=== PATIENT | male | born 1975 | race Caucasian/White ===

== ENCOUNTER 2021-07-21 16:18 | Emergency (ER) | payer BC ==
[2021-07-21 17:19] LABS: CORONAVIRUS COVID-19 NAA POSITIVE (NEGATIVE); INFLUENZA A NAA NEGATIVE (NEGATIVE); INFLUENZA B NAA NEGATIVE (NEGATIVE)
[2021-07-21 18:09] VITALS: PULSE 95
--- NOTE | 2021-07-21 19:02 | EDM.PDOC ---
ED HPI GENERAL MEDICAL PROBLEM - General Chief Complaint: Respiratory Problem Stated Complaint: COUGH, COVID SYMPTOMS Time Seen by Provider: 07/21/21 18:08 - History of Present Illness INITIAL COMMENTS - FREE TEXT/NARRATIVE: CHIEF COMPLAINT(S): Cough HISTORY OF PRESENT ILLNESS: This is a 45-year-old man without any significant past medical history who comes to the emergency department with a chief complaint of a cough. The patient states that for approximately 1-1/2 weeks now he has been experiencing body aches, cough which is nonproductive and just does not feel well. He denies any chest pain, runny nose, congestion, sore throat. He states that he has not tried anything for the body aches. States that he is not vaccinated. He came to the emergency department because he just is not feeling better. REVIEW OF SYSTEMS: Constitutional: Denies fever, chills. Eyes: Denies eye pain Ears, Nose, Mouth, & Throat: Denies earache Cardiovascular: Denies chest pain Respiratory: Positive for nonproductive cough denies shortness of breath Gastrointestinal: Denies Nausea, vomiting, diarrhea, hematochezia. Genitourinary: Denies hematuria Skin:Denies a rash MSK: Positive for body aches Neurological: Denies blurred vision Psychiatric: Denies depression PAST MEDICAL HISTORY: As per history of present illness and as reviewed below otherwise noncontributory. SURGICAL HISTORY: As per history of present illness and as reviewed below otherwise noncontributory. SOCIAL HISTORY: As per history of present illness and as reviewed below otherwise noncontributory. FAMILY HISTORY: As per history of present illness and as reviewed below otherwise noncontributory. EXAMINATION OF ORGAN SYSTEMS/BODY AREAS: Constitutional: Blood pressure is 126/76, heart rate 93, respiratory rate 18 with an oxygen saturation 95% on room air. Temperature 36.9 General: Young man who does not appear to be in acute distress Psychiatric: Appropriate mood and affect. Eyes: No scleral icterus or conjunctival erythema ENMT: Moist mucous membranes. No pharyngeal erythema Cardiovascular: Regular, rate, and rhythm. No gallops, murmurs, or rubs. Bilateral upper extremity pulses symmetric and intact. No peripheral edema. No JVD. Respiratory: Lungs clear to auscultation bilaterally. No wheezes, rales, or rhonchi. Gastrointestinal: Soft, non-tender, non-distended. Normoactive bowel sounds Genitourinary: No suprapubic tenderness Musculoskeletal: Normal range of motion. Skin: No lesions or abrasions. Neurological: Alert, GCS 15 MEDICAL DECISION MAKING AND COURSE IN THE ED WITH INTERPRETATION/REVIEW OF DIAGNOSTIC STUDIES: This is a 45-year-old man without any significant past medical history who comes to the emergency department with nonproductive cough and body aches suggesting viral syndrome at this time I do believe this is likely secondary to Covid versus influenza. Obtain a Covid, influenza swab. Patient's vitals are completely normal. I do not believe any therapeutics are currently indicated. The patient was amenable to this plan. Laboratory: Covid is positive. Influenza is negative. At this point I did discussed that his vitals are completely normal. I did discuss with him strict return precautions. He is to continue with isolation until symptoms improve. He was amenable discharge at this time and had no further questions. Patient is not a monoclonal antibody his duration of his symptoms. DISPOSITION: The patient was discharged home in stable condition. The patient will follow up with primary care physician after his isolation CONDITION: Fair PROCEDURES: None FINAL IMPRESSION(S)/DIAGNOSES: 1. Acute COVID-19 infection Benjamín Suarez M.D. - Related Data Allergies Allergy/AdvReac Type Severity Reaction Status Date / Time No Known Allergies Allergy Verified 07/21/21 16:24 Home Meds: Home Meds Escitalopram [Lexapro] 20 mg PO DAILY 07/21/21 [History] Past Medical History - Past Health History Medical/Surgical History: Denies Medical/Surgical History Psychiatric History: Reports: Depression Social & Family History - Family History Family Medical History: No Pertinent Family History - Tobacco Use Tobacco Use Status *Q: Never Tobacco User - Recreational Drug Use Recreational Drug Use: No ED ROS GENERAL - Review of Systems Review Of Systems: See Below ED EXAM, GENERAL - Physical Exam Exam: See Below Course - Vital Signs Last Recorded V/S: Last Vital Signs Temp 36.9 C 07/21/21 16:22 Pulse 95 07/21/21 19:04 Resp 18 07/21/21 19:04 BP 123/75 07/21/21 19:04 Pulse Ox 96 07/21/21 19:04 - Orders/Labs/Meds Labs: Laboratory Tests 07/21/21 Range/Units 16:24 Influenza Type A RNA NEGATIVE (NEGATIVE) Influenza Type B RNA NEGATIVE (NEGATIVE) SARS-CoV-2 RNA (TROY) POSITIVE H (NEGATIVE) Departure - Departure Time of Disposition: 19:02 Disposition: Home, Self-Care 01 Condition: Fair Clinical Impression: COVID-19 - Discharge Information Instructions: How to Protect Yourself and Others - [facility] (03/14/2021), 10 Things You Can Do to Manage Your COVID-19 Symptoms at Home - [facility] (02/14/2021), Symptoms of COVID-19 - [facility] (09/23/2020), COVID-19: Quarantine vs. Isolation - [facility] (07/18/2020) Referrals: PCP,None [Primary Care Provider] - Forms: ED Department Discharge Additional Instructions: You should take acetaminophen 500-1000 mg every 6 hours as needed for fever and muscle aches. Please drink plenty of fluids and get plenty of rest over the next several days. We would recommend that you get a pulse oximeter from the pharmacy to keep an eye on your oxygen level. If your oxygen level drops below 91%, you should return to the ED for evaluation. You should return to the ER sooner if you start having any symptoms of shortness of breath or any other new or concerning symptoms. 1. Your COVID-19 screening is positive. That means you do have the coronavirus and you are considered contagious. Your vital signs and oxygen saturation are well enough that you were able to monitor your symptoms at home. Continue to monitor for trouble breathing, new confusion or inability to arouse, bluish lips or face or any of the other symptoms we discussed -if this occurs please return to the emergency room. 2. Please self quarantine over the next 10 days. Inform any persons that you have been in contact with since you started becoming symptomatic that you have tested positive; they should be made aware and take the appropriate steps as needed. 3. May alternate Tylenol and ibuprofen as needed for pain and fever management. 4. The [facility] department will be calling you and following up with you. The [place] COVID 19 Hotline phone number , They are open Wednesday - Wednesday 7am - 7pm. Follow up with your primary care provider for re-evaluation and re-testing after the 10 day quarantine and discuss when you should be seen. [facility] [address] [place] [address] [facility] [address] [place] [id number] The patient is informed of any results of their evaluation and diagnostic workup and all questions are answered. They are given discharge instructions and return precautions. The patient is stable for discharge. The patient states they understand and agree with the plan and that they will return if their symptoms get worse or if they have any new concerns. The following information is given to patients seen in the emergency department who are being discharged to home. This information is to outline your options for follow-up care. We provide all patients seen in our emergency department with a follow-up referral. The need for follow-up, as well as the timing and circumstances, are variable depending upon the specifics of your emergency department visit. If you don't have a primary care physician on staff, we will provide you with a referral. We always advise you to contact your personal physician following an emergency department visit to inform them of the circumstance of the visit and for follow-up with them and/or the need for any referrals to a consulting specialist. The emergency department will also refer you to a specialist when appropriate. This referral assures that you have the opportunity for follow-up care with a specialist. All of these measure are taken in an effort to provide you with optimal care, which includes your follow-up. Under all circumstances we always encourage you to contact your private physician who remains a resource for coordinating your care. When calling for follow-up care, please make the office aware that this follow-up is from your recent emergency room visit. If for any reason you are refused follow-up, please contact the [facility] Emergency Department at and asked to speak to the emergency department charge nurse. Sepsis Event Note (ED) - Evaluation Sepsis Screening Result: No Definite Risk
[2021-07-21 19:13] VITALS: BP 123/75
== END 2021-07-21 19:04 | disposition home or self-care (01) ==
LOC: MW.ED 16:18
DX: U07.1 COVID-19 (principal)
CPT/HCPCS: 0240U; 99283

== ENCOUNTER 2021-07-25 08:58 | Emergency (ER) | payer BC ==
[2021-07-25] MEDS ORDERED: Acetaminophen 500 MG Tab PO ONE (08:59)
[2021-07-25] MEDS ORDERED: Dexamethasone 10 MG/ML SDV IVPUSH ONE (08:59)
[2021-07-25] MEDS ORDERED: Ketorolac 30 MG/ML SDV IVPUSH ONE (09:01)
--- NOTE | 2021-07-25 09:04 | EDM.PDOC ---
ED HPI GENERAL MEDICAL PROBLEM - General Stated Complaint: COVID Time Seen by Provider: 07/25/21 08:58 Source of Information: Reports: Patient, EMS History Limitations: Reports: No Limitations - History of Present Illness INITIAL COMMENTS - FREE TEXT/NARRATIVE: 45-year-old male past medical history depression, obesity presents for worsening COVID-19 symptoms. Patient was diagnosed with COVID-19 4 days ago. He notes symptoms times approximately 1 week. He notes shortness of breath, cough, body aches, fevers. He has not been vaccinated against Covid. He has not been on any medications for Covid. Back Pain Score (Numeric/FACES): 7 - Related Data Allergies Allergy/AdvReac Type Severity Reaction Status Date / Time No Known Allergies Allergy Verified 07/25/21 09:14 Past Medical History - Past Health History Medical/Surgical History: Denies Medical/Surgical History Psychiatric History: Reports: Depression Social & Family History - Family History Family Medical History: No Pertinent Family History ED ROS GENERAL - Review of Systems Review Of Systems: Comprehensive ROS is negative, except as noted in HPI. ED EXAM, GENERAL - Physical Exam Exam: See Below Exam Limited By: No Limitations General Appearance: Alert, WD/WN, Anxious, Mild Distress Ears: Hearing Grossly Normal Throat/Mouth: Normal Voice, No Airway Compromise Head: Atraumatic, Normocephalic Respiratory/Chest: Lungs Clear, Normal Breath Sounds, Respiratory Distress Cardiovascular: Normal Peripheral Pulses, No Edema, Tachycardia Extremities: Normal Inspection Neurological: Alert, Normal Cognition Psychiatric: Normal Affect, Normal Mood Skin Exam: Warm, Dry, Intact, Normal Color ED GENERAL MEDICAL PROCEDURES - Endotracheal Intubation Time of Intubation: 16:18 ET Intubation Indication: Respiratory Failure, Airway Protection Preparation: Suction, Balloon Tested, BVM Set Up, Difficult Airway Equip Airway Assessment: Profuse Secretions, Obese, Large Tongue Pre-Oxygenation: Assisted with BVM Anesthesia Meds: Etomidate, Propofol, Rocuronium Placement: Orotracheal, Cuffed (e) Cords Visualized: Yes ETT Size In mm: 7.5 Number of Attempts: 2 Confirmed By: CO2 Indicator, Bilateral Breath Sounds Tube Secured By: By RT #1 Interpretation EKG Date: 07/25/21 Time: 09:00 Rhythm: NSR Rate (Beats/Min): 111 [place]: Normal P-Wave: Present QRS: Normal ST-T: Normal QT: Normal [place]/PQ Interval: 154 Comparison: NA - No Prior EKG EKG Interpretation Comments: EKG shows sinus tachycardia of 111, difficult to read EKG secondary to motion artifact Course - Vital Signs Last Recorded V/S: Last Vital Signs Temp 97.8 F 07/25/21 15:15 Pulse 112 H 07/25/21 16:35 Resp 40 H 07/25/21 16:35 BP 137/86 07/25/21 16:35 Pulse Ox 84 L 07/25/21 16:35 - Orders/Labs/Meds Orders: Medication Orders Propofol (Diprivan 100 Ml) 100 mls @ 3.606 mls/hr IV TITRATE KEILY; Protocol Last Admin: 07/25/21 16:15 Dose: 5 mcg/kg/min, 3.606 mls/hr Documented by: SHANE Labs: Laboratory Tests 07/25/21 07/25/21 07/25/21 Range/Units 09:00 09:00 09:00 WBC 2.02 L (4.0-11.0) K/uL RBC 5.39 (4.50-5.90) M/uL Hgb 16.1 (13.0-17.0) g/dL Hct 46.2 (38.0-50.0) % MCV 85.7 (80.0-98.0) fL MCH 29.9 (27.0-32.0) pg MCHC 34.8 (31.0-37.0) g/dL RDW Std Deviation 41.3 (28.0-62.0) fl RDW Coeff of Liz 13 (11.0-15.0) % Plt Count 223 (150-400) K/uL MPV 10.60 (7.40-12.00) fL Add Manual Diff YES Neutrophils % (Manual) 21 L (48.0-80.0) % Band Neutrophils % 56 % Lymphocytes % (Manual) 14 L (16.0-40.0) % Monocytes % (Manual) 2 (0.0-15.0) % Metamyelocytes % 6 % Myelocytes % 1 % Nucleated RBC % 0.0 /100WBC Absolute Seg Neuts 0.4 L (1.4-5.7) Band Neutrophils # 1.1 Lymphocytes # (Manual) 0.3 L (0.6-2.4) Monocytes # (Manual) 0.0 (0.0-0.8) Absolute Metamyelocyte 0.1 Absolute Myelocytes 0 Nucleated RBCs # 0 K/uL Vacuolated Monocytes 1+ SLIGHT Toxic Granulation 1+ SLIGHT Dohle Bodies 1+ SLIGHT Giant Platelets RARE INR APTT (18.6-31.3) SEC D-Dimer, Quantitative 5.45 H (0.0-0.50) mg/L FEU ABG pH (7.35-7.45) ABG pCO2 (35-45) mmHG ABG pO2 (80-105) mmHG ABG HCO3 (22-26) mEq/L Sodium 135 L (136-148) mmol/L Potassium 3.3 L (3.5-5.1) mmol/L Chloride 95 L (98-107) mmol/L Carbon Dioxide 19.8 L (21.0-32.0) mmol/L BUN 47 H (7.0-18.0) mg/dL Creatinine 3.0 H (0.8-1.3) mg/dL Est Cr Clr Drug Dosing 31.42 mL/min Estimated GFR (MDRD) 22.8 ml/min Glucose 156 H (74-106) mg/dL Lactic Acid (0.4-2.0) mmol/L Calcium 8.4 L (8.5-10.1) mg/dL Magnesium 1.7 L (1.8-2.4) mg/dL Total Bilirubin 1.4 H (0.2-1.0) mg/dL AST 183 H (15-37) IU/L ALT 42 (14-63) IU/L Alkaline Phosphatase 27 L (46-116) U/L Troponin I < 0.050 (0.000-0.056) ng/mL C-Reactive Protein 54.10 H (0.00-0.90) mg/dL Total Protein 7.3 (6.4-8.2) g/dL Albumin 2.7 L (3.4-5.0) g/dL Globulin 4.6 H (2.6-4.0) g/dL Albumin/Globulin Ratio 0.6 L (0.9-1.6) 07/25/21 07/25/21 07/25/21 Range/Units 09:00 09:00 10:30 WBC (4.0-11.0) K/uL RBC (4.50-5.90) M/uL Hgb (13.0-17.0) g/dL Hct (38.0-50.0) % MCV (80.0-98.0) fL MCH (27.0-32.0) pg MCHC (31.0-37.0) g/dL RDW Std Deviation (28.0-62.0) fl RDW Coeff of Liz (11.0-15.0) % Plt Count (150-400) K/uL MPV (7.40-12.00) fL Add Manual Diff Neutrophils % (Manual) (48.0-80.0) % Band Neutrophils % % Lymphocytes % (Manual) (16.0-40.0) % Monocytes % (Manual) (0.0-15.0) % Metamyelocytes % % Myelocytes % % Nucleated RBC % /100WBC Absolute Seg Neuts (1.4-5.7) Band Neutrophils # Lymphocytes # (Manual) (0.6-2.4) Monocytes # (Manual) (0.0-0.8) Absolute Metamyelocyte Absolute Myelocytes Nucleated RBCs # K/uL Vacuolated Monocytes Toxic Granulation Dohle Bodies Giant Platelets INR 1.40 APTT 37.7 H (18.6-31.3) SEC D-Dimer, Quantitative (0.0-0.50) mg/L FEU ABG pH 7.44 (7.35-7.45) ABG pCO2 23 L (35-45) mmHG ABG pO2 58 L (80-105) mmHG ABG HCO3 16 L (22-26) mEq/L Sodium (136-148) mmol/L Potassium (3.5-5.1) mmol/L Chloride (98-107) mmol/L Carbon Dioxide (21.0-32.0) mmol/L BUN (7.0-18.0) mg/dL Creatinine (0.8-1.3) mg/dL Est Cr Clr Drug Dosing mL/min Estimated GFR (MDRD) ml/min Glucose (74-106) mg/dL Lactic Acid 7.6 H* (0.4-2.0) mmol/L Calcium (8.5-10.1) mg/dL Magnesium (1.8-2.4) mg/dL Total Bilirubin (0.2-1.0) mg/dL AST (15-37) IU/L ALT (14-63) IU/L Alkaline Phosphatase (46-116) U/L Troponin I (0.000-0.056) ng/mL C-Reactive Protein (0.00-0.90) mg/dL Total Protein (6.4-8.2) g/dL Albumin (3.4-5.0) g/dL Globulin (2.6-4.0) g/dL Albumin/Globulin Ratio (0.9-1.6) 07/25/21 Range/Units 14:14 WBC (4.0-11.0) K/uL RBC (4.50-5.90) M/uL Hgb (13.0-17.0) g/dL Hct (38.0-50.0) % MCV (80.0-98.0) fL MCH (27.0-32.0) pg MCHC (31.0-37.0) g/dL RDW Std Deviation (28.0-62.0) fl RDW Coeff of Liz (11.0-15.0) % Plt Count (150-400) K/uL MPV (7.40-12.00) fL Add Manual Diff Neutrophils % (Manual) (48.0-80.0) % Band Neutrophils % % Lymphocytes % (Manual) (16.0-40.0) % Monocytes % (Manual) (0.0-15.0) % Metamyelocytes % % Myelocytes % % Nucleated RBC % /100WBC Absolute Seg Neuts (1.4-5.7) Band Neutrophils # Lymphocytes # (Manual) (0.6-2.4) Monocytes # (Manual) (0.0-0.8) Absolute Metamyelocyte Absolute Myelocytes Nucleated RBCs # K/uL Vacuolated Monocytes Toxic Granulation Dohle Bodies Giant Platelets INR APTT (18.6-31.3) SEC D-Dimer, Quantitative (0.0-0.50) mg/L FEU ABG pH (7.35-7.45) ABG pCO2 (35-45) mmHG ABG pO2 (80-105) mmHG ABG HCO3 (22-26) mEq/L Sodium (136-148) mmol/L Potassium (3.5-5.1) mmol/L Chloride (98-107) mmol/L Carbon Dioxide (21.0-32.0) mmol/L BUN (7.0-18.0) mg/dL Creatinine (0.8-1.3) mg/dL Est Cr Clr Drug Dosing mL/min Estimated GFR (MDRD) ml/min Glucose (74-106) mg/dL Lactic Acid 5.9 H* (0.4-2.0) mmol/L Calcium (8.5-10.1) mg/dL Magnesium (1.8-2.4) mg/dL Total Bilirubin (0.2-1.0) mg/dL AST (15-37) IU/L ALT (14-63) IU/L Alkaline Phosphatase (46-116) U/L Troponin I (0.000-0.056) ng/mL C-Reactive Protein (0.00-0.90) mg/dL Total Protein (6.4-8.2) g/dL Albumin (3.4-5.0) g/dL Globulin (2.6-4.0) g/dL Albumin/Globulin Ratio (0.9-1.6) Meds: Medications Generic Name Dose Route Start Last Admin Trade Name Freq PRN Reason Stop Dose Admin Propofol 100 mls @ 3.606 mls/hr 07/25/21 16:00 07/25/21 16:15 Diprivan 100 Ml IV 5 mcg/kg/min TITRATE KEILY 3.606 mls/hr Administration Protocol 5 MCG/KG/MIN Discontinued Medications Generic Name Dose Route Start Last Admin Trade Name Freq PRN Reason Stop Dose Admin Acetaminophen 1,000 mg 07/25/21 08:59 07/25/21 09:45 Acetaminophen 500 Mg Tab PO 07/25/21 09:00 1,000 mg ONETIME ONE Administration Dexamethasone 6 mg 07/25/21 08:59 07/25/21 09:44 Dexamethasone 10 Mg/Ml Sdv IVPUSH 07/25/21 09:00 6 mg ONETIME ONE Administration Enoxaparin Sodium 120 mg 07/25/21 10:14 07/25/21 10:23 Enoxaparin 150 Mg/1 Ml Syringe SUBCUT 07/25/21 10:15 120 mg ONETIME ONE Administration Etomidate 20 mg 07/25/21 16:09 07/25/21 16:09 Etomidate 2 Mg/Ml 20 Ml Sdv IVPUSH 07/25/21 16:10 20 mg ONETIME ONE Administration Remdesivir 200 mg/ Sodium 250 mls @ 250 mls/hr 07/25/21 10:00 07/25/21 10:54 Chloride IV 07/25/21 10:59 Not Given ONETIME ONE Magnesium Sulfate 2 gm/ Premix 50 mls @ 50 mls/hr 07/25/21 10:15 07/25/21 10:22 IV 07/25/21 11:14 50 mls/hr ONETIME ONE Administration Sodium Chloride 1,000 mls @ 150 mls/hr 07/25/21 10:16 07/25/21 10:37 Normal Saline IV 07/25/21 16:55 150 mls/hr NOW STA Administration Remdesivir 200 mg/ Sodium 250 mls @ 250 mls/hr 07/25/21 10:39 07/25/21 10:40 Chloride IV 07/25/21 10:40 250 mls/hr ONETIME ONE Administration Propofol Confirm 07/25/21 15:58 07/25/21 15:58 Diprivan 100 Ml Administered 07/25/21 15:59 Not Given Dose 100 mls @ as directed .ROUTE .STK-MED ONE Sodium Chloride 1,000 mls @ 999 mls/hr 07/25/21 16:05 07/25/21 16:05 Normal Saline IV 07/25/21 17:05 999 mls/hr .Bolus ONE Administration Ketorolac Tromethamine 15 mg 07/25/21 09:01 07/25/21 09:44 Ketorolac 30 Mg/Ml Sdv IVPUSH 07/25/21 09:02 15 mg ONETIME ONE Administration Potassium Chloride 40 meq 07/25/21 10:14 07/25/21 10:23 Potassium Chloride 20 Meq Tab.Er PO 07/25/21 10:15 40 meq ONETIME ONE Administration Rocuronium [place] 70 mg 07/25/21 16:10 07/25/21 16:10 Rocuronium 100 Mg/10 Ml Mdv IV 07/25/21 16:11 70 mg ONETIME ONE Administration - Re-Assessments/Exams Free Text/Narrative Re-Assessment/Exam: 07/25/21 09:03 Patient noted to be hypoxic on room air to 60s by EMS; he was placed on 15-L NRB with improvement of sats to 80s. Will start high-flow nasal cannula oxygenation. 07/25/21 09:17 Patient's oxygen saturation does improve to 87 to 88% on high flow nasal cannula. 07/25/21 10:15 Patient's x-ray shows severe Covid pneumonia. Labs with leukopenia, elevated D- dimer, negative troponin, hyponatremia, acute renal failure, hypokalemia, hypomagnesemia. IV fluids ordered. Potassium ordered. Magnesium ordered. Lovenox ordered at 1 mg/kg, cannot rule out pulmonary embolism as we cannot get a CTA considering patient's acute renal failure. 07/25/21 10:30 Patient was switched to BiPAP as he was persistently saturating in the low 80s on the high flow nasal cannula. Oxygen saturation at this time after roughly 30 min on BiPAP is 88% with settings 16/6. Will f/u ABG and admit patient to ICU level care 07/25/21 10:51 Will consult hospitalist; patient has been placed on [facility] transfer center list however they note that there are no ICU beds available in [place], [place], [place], [place], or [place] at last check. There are other patients ahead of him on the list. 07/25/21 11:59 Spoke with ER physician at [place]; they do not have beds but recommend checking back in 2-hrs. 07/25/21 14:06 Sen Gaspar accepts to ICU level service. Patient's will be here in approx 30min and we will discuss risks/benefits of intubation prior to flight. 07/25/21 16:19 Patient started to tire out and did want intubation prior to transfer. See procedure note. Departure - Departure Time of Disposition: 19:31 Disposition: DC/Tfer to Acute Hospital 02 Condition: Critical Clinical Impression: COVID-19 - Discharge Information Referrals: PCP,None [Primary Care Provider] - Forms: ED Department Discharge Critical Care Note - Critical Care Note Total Time (mins): 65
[2021-07-25] MEDS ORDERED: REMDESIVIR 200 MG in Sodium Chloride 0.9% 250 ML IV ONE ×3 (09:17→10:39)
[2021-07-25 09:41] LABS: BLOOD UREA NITROGEN,BUN 47 mg/dL (7.0-18.0); CARBON DIOXIDE,CO2 19.8 mmol/L (21.0-32.0); CHLORIDE,CL 95 mmol/L (98-107); GLUCOSE RANDOM 156 mg/dL (74-106); POTASSIUM,K 3.3 mmol/L (3.5-5.1); SODIUM,NA 135 mmol/L (136-148)
--- NOTE | 2021-07-25 10:05 | CR ---
INDICATION: Hypoxia. TECHNIQUE: Portable AP chest radiograph. COMPARISON: 05/06/2011. FINDINGS: Moderate-severe widespread heterogeneous opacities. No pneumothorax or sizable pleural effusion identified. Cardiac size within normal limits. IMPRESSION: Moderate-severe widespread heterogeneous opacities typical of COVID-19 infection. Dictated by Jayant Pang MD @ 07/25/2021 10:03:12 AM Dictated by: Jayant Pang MD @ 07/25/2021 10:03:19 (Electronically Signed)
[2021-07-25] MEDS ORDERED: Enoxaparin 150 MG/1 ML Syringe SUBCUT ONE (10:14)
[2021-07-25] MEDS ORDERED: Potassium Chloride 20 MEQ Tab.ER PO ONE (10:14)
[2021-07-25] MEDS ORDERED: Magnesium Sulfate/Water 2 GM in Premix Bag 1 BAG IV ONE (10:15)
[2021-07-25] MEDS ORDERED: Sodium Chloride 0.9% 1,000 ML IV STA (10:16)
[2021-07-25] MEDS ORDERED: propofoL 100 ML ONE (15:58)
[2021-07-25] MEDS ORDERED: propofoL 100 ML IV SCH (16:00)
[2021-07-25] MEDS ORDERED: Sodium Chloride 0.9% 1,000 ML IV ONE (16:05)
[2021-07-25] MEDS ORDERED: Etomidate 2 MG/ML 20 ML SDV IVPUSH ONE (16:09)
[2021-07-25] MEDS ORDERED: Rocuronium 100 MG/10 ML MDV IV ONE (16:10)
[2021-07-25 18:09] VITALS: BP 137/86; PULSE 112
== END 2021-07-25 16:41 ==
LOC: MW.ED 08:58
DX: U07.1 COVID-19 (principal)
CPT/HCPCS: 31500; 36415; 36600; 51702; 71045; 80053; 82803; 83605; 83735; 84484; 85025; 85379; 85610; 85730; 86140; 87040; 87077; 87186; 93005; 96365; 96367; 96372; 96375; 99285; A9270; J1100; J1650; J1885; J2704; J3475; J3490; J7030; J7050